=== PATIENT | male | born 1950 ===

== ENCOUNTER 2016-09-16 10:19 | Day surgery (SDC) | payer OTHER ==
[~2016-09-16 10:19] MED LIST: ceFAZolin 2 GM/DEXTROSE 100 ML IV ONE
[2016-09-16] MEDS ORDERED: CEFAZOLIN 2 GM/DEXTROSE/100 ML BAG IV ONE (10:45)
[2016-09-16] MEDS ORDERED: LIDOCAINE 1% 2 ML INJ ONE (10:45)
[2016-09-16 11:38] LABS: CALCIUM 9.2 mg/dL (8.5-10.4); CARBON DIOXIDE 20 mEq/l (22-31); GLOMERULAR FILTRATION RATE 7; GLUCOSE 86 mg/dL (70-100); POTASSIUM 4.7 mEq/L (3.5-5.2); SODIUM 145 mEq/L (134-144)
[2016-09-16 11:39] LABS: INR 1.07 (0.83-1.16); PROTIME(PATIENT) 13.8 SEC (12.0-15.0)
[2016-09-16 11:58] LABS: ANION GAP 14 mEq/L (8-16); CHLORIDE 111 mEq/L (97-110)
[2016-09-16 12:16] LABS: CREATININE 8.1 mg/dL (0.7-1.3)
[2016-09-16] MEDS ORDERED: LIDOCAINE 1% 30 ML SDV ONE (14:50)
[2016-09-16] MEDS ORDERED: SODIUM BICARBONATE 10 MEQ/10 ML SYR IVP ONE (14:50)
[2016-09-16] MEDS ORDERED: BUPIVACAINE 0.5% 30 ML SDV ONE (14:51)
[2016-09-16] MEDS ORDERED: MIDAZOLAM 2 MG/2 ML VIAL ONE (14:59)
[2016-09-16] MEDS ORDERED: ROCURONIUM 50 MG/5 ML VIAL ONE (15:10)
[2016-09-16] MEDS ORDERED: PROPOFOL 200 MG/20 ML VIAL ONE (15:10)
[2016-09-16] MEDS ORDERED: fentaNYL 100 MCG/2 ML INJ ONE (15:10)
--- NOTE | 2016-09-16 21:27 | GOP ---
[f rep st] OPERATIVE REPORT DATE OF OPERATION: 09/16/2016 SURGEON: Eboni Lloyd MD ANESTHESIA: Hector Rodriguez MD/general. PREOPERATIVE DIAGNOSIS: Chronic kidney disease, and umbilical hernia. POSTOPERATIVE DIAGNOSIS: Chronic kidney disease, and umbilical hernia. PROCEDURE PERFORMED: Laparoscopic peritoneal dialysis catheter placement and umbilical hernia repair. FINDINGS: Umbilical hernia, incarcerated omentum. SPECIMENS: None. 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 It is thought that he had developed chronic kidney disease due to amphotericin. He will be starting on dialysis soon. DESCRIPTION OF PROCEDURE: The patient was brought into the operating room, placed supine on the table. General anesthesia was administered. His abdomen was prepped and draped in the usual sterile fashion. I made an incision at his umbilicus. I dissected down through the subcutaneous tissue and I immediately encountered incarcerated omentum. I cleared this from both above and below the fascia. The defect was about 12mm. I then inserted a trocar at this site. I performed insufflation, inserted the camera. There were no other adhesions in his abdomen. I placed a peritoneal dialysis catheter. I placed a 2nd 5 mm trocar on the right lower quadrant to direct the catheter tip to the pelvis. The cuff was at the fascia. I then tunneled the catheter to an exit site in the left upper abdomen. The catheter was sutured into place with 3-0 nylon. I examined the catheter again; it was adequately in the pelvis. I closed the fascia at the umbilical site with 0 Surgilon and then placed a piece of 0 Vicryl in a pursestring fashion to suture the cuff to the fascia. Skin was closed with 3-0 Vicryl followed by 4-0 Monocryl. Dermabond applied. I then infused the catheter with 500 cc of saline; it went in nicely. I then placed it to gravity and it drained very easily. The appropriate connecting pieces were placed. Sterile dressings applied. He was awakened in the operating room, extubated, transferred to PACU in stable condition. /[id number]/MODL MTDD
== END 2016-09-16 17:40 | disposition home or self-care (01) ==
LOC: FSGY 10:19
PROVIDERS: ATTEND Surgery
DX: N18.9 Chronic kidney disease, unspecified (principal); K42.0 Umbilical hernia with obstruction, without gangrene; I25.10 Atherosclerotic heart disease of native coronary artery without angina pectoris; M10.9 Gout, unspecified; Z95.1 Presence of aortocoronary bypass graft; Z95.3 Presence of xenogenic heart valve
CPT/HCPCS: C1750; J0690; J2250; J2704; J3010

== ENCOUNTER → 2018-03-21 | Outpatient (CLI) | payer OTHER | LOC: FIMAGING 17:02 | PROVIDERS: ATTEND Surgery | DX: K40.20 Bilateral inguinal hernia, without obstruction or gangrene, not specified as recurrent (principal) ==

== ENCOUNTER 2018-03-28 09:26 | Day surgery (SDC) | payer OTHER ==
[2018-03-28] MEDS ORDERED: ceFAZolin 2 GM/DEXTROSE 100 ML IV ONE (09:44)
--- NOTE | 2018-03-28 10:02 | PDHPUP ---
History & Physical Update H&P update statement: This history and physical update is based on an assessment of the patient which was completed after admission or registration (within 24 hours), but prior to the surgery/procedure. H&P update: H&P reviewed & patient examined, no change in patient's condition since H&P completed
[2018-03-28] MEDS ORDERED: NS 1,000 ML IV ONE (10:15)
[2018-03-28] MEDS ORDERED: LIDOCAINE 1% 2 ML INJ ID PRN (10:15)
--- NOTE | 2018-03-28 10:17 | POSTANESTH ---
Post Anesthetic Evaluation Cardiovascular Status: Normal, Stable Respiratory Status: Normal, Stable Level of Consciousness/Mental Status: Can Participate in Eval, Moderately Sleepy Pain Control: Adequate, Prn Tx Ordered Nausea/Vomiting Control: Adequate, Prn Tx Ordered Complications Possibly Related to Anesthesia: None Noted
--- NOTE | 2018-03-28 10:19 | PDANEPAE ---
ANE History of Present Illness 68 yo male for L LIH repair and peritoneal dialysis cath placement. ANE Past Medical History - Cardiovascular History Hx Hypertension: Yes Hx Arrhythmias: No Hx Chest Pain: No Hx Coronary Artery / Peripheral Vascular Disease: Yes Hx CHF / Valvular Disease: Yes Hx Palpitations: No Cardiovascular History Comment: Hx AORTIC STENOSIS & REGURITATION AORTIC VALVE REPLACEMENT 2013. STENT 2007. RI 2007 - Pulmonary History Hx COPD: No Hx Asthma/Reactive Airway Disease: No Hx Recent Upper Respiratory Infection: No Hx Oxygen in Use at Home: No Hx Sleep Apnea: No Sleep Apnea Screening Result - Last Documented: Positive Pulmonary History Comment: ROXANNA triggers - Neurologic History Hx Cerebrovascular Accident: No Hx Seizures: No Hx Dementia: No Neurologic History Comment: OCCIPITAL LOBE 2009 ? TIA - mild peripherial vision impact. Hx migraines - Endocrine History Hx Diabetes: No Hypothyroid: No Hyperthyroid: No Obesity: no - Renal History Hx Renal Disorders: Yes Renal History Comment: Chronic renal failure - daily peritoneal dialysis - Liver History Hx Hepatic Disorders: No - Neurological & Psychiatric Hx Hx Neurological and Psychiatric Disorders: No - Cancer History Hx Cancer: Yes Cancer History Comment: squamous cell spots removed. 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 HIATAL HERNIA. mild irritable bowel, mucus in stools - Other Health History Other Health History: wears glasses. VALLEY FEVER 1978. CHRONIC ANKLE EDEMA. GOUT. chronically dry skin - Chronic Pain History Chronic Pain: No - Surgical History Prior Surgeries: Left nephrectomy, 09/2017. PD catheter placement & umbilical hernia repair, 08/2016. CABG X4 w/ AORTIC VALVE REPLACEMENT 10/2013. REMVL ABCESS RELATED TO VALLEY FEVER 1978 ANE Review of Systems Review of systems is: negative Review of Systems: - Exercise capacity METS (RN): 3 METS ANE Patient History - Allergies Allergies/Adverse Reactions: oxycodone Allergy (Verified 03/26/18 17:26) Vomiting - Home Medications Home Medications: ASPIRIN DAILY AT 6AM 09/13/16 [Last Taken 03/25/18] Allopurinol DAILY06 09/13/16 [Last Taken 03/28/18 07:00] CALCITRIOL DAILY06 09/13/16 [Last Taken 03/28/18 07:30] Carvedilol BID 09/13/16 [Last Taken 03/27/18 23:00] Ranitidine HCl DAILY AT 6PM 09/13/16 [Last Taken 03/27/18 23:00] Rosuvastatin Calcium DAILY06 09/13/16 [Last Taken 03/27/18 08:00] Flomax 03/26/18 [Last Taken 03/27/18 23:00] Fosrenol 03/26/18 [Last Taken 03/27/18 23:00] Ocuvite Adult 50 Plus Softgel 03/26/18 [Last Taken 03/26/18] Vitamin D3 03/26/18 [Last Taken 03/26/18] - NPO status NPO Status: no food or drink >8 hours - Anes Hx Anes Hx: no prior problems - Smoking Hx Smoking Status: Former smoker - Family Anes Hx Family Anes Hx: neg - N/A Family Hx Anesthesia Complications: none ANE Labs/Vital Signs - Labs Result Diagrams: 03/28/18 10:54 03/28/18 10:54 - Vital Signs Vital Signs: reviewed preoperatively; see RN documention for details Height: 173.99 cm Weight: 82.554 kg ANE Physical Exam - Airway Neck exam: FROM Mallampati Score: Class 2 Mouth exam: normal dental/mouth exam - Pulmonary Pulmonary: clear to auscultation - Cardiovascular Cardiovascular: regular rate and rhythym, systolic murmur - ASA Status ASA Status: III ANE Anesthesia Plan Anesthesia Plan: general endotracheal anesthesia
[2018-03-28] MEDS ORDERED: LIDOCAINE 1% 300 MG/30 ML SDV ONE (10:50)
[2018-03-28] MEDS ORDERED: BUPIVACAINE 0.5% 30 ML SDV ONE (10:50)
[2018-03-28] MEDS ORDERED: POVIDONE-IODINE 30 GM OINTTUBE TP ONE (10:52)
[2018-03-28] MEDS ORDERED: NA BICARBONATE 50 MEQ/50 ML VIAL ONE (10:53)
[2018-03-28 10:59] LABS: PLATELET COUNT 211 10^3/uL (150-400)
[2018-03-28] MEDS ORDERED: fentaNYL 100 MCG/2 ML INJ ONE ×2 (11:24→13:06)
[2018-03-28] MEDS ORDERED: PROPOFOL 200 MG/20 ML VIAL ONE (11:24)
[2018-03-28] MEDS ORDERED: CISATRACURIUM BESYLATE 20 MG/10 ML VIAL IV ONE (11:24)
[2018-03-28] MEDS ORDERED: LIDOCAINE 2% 2 ML INJ ONE (11:24)
[2018-03-28] MEDS ORDERED: DEXAMETHASONE 4 MG/ML VIAL ONE (11:24)
[2018-03-28] MEDS ORDERED: PHENYLEPHRINE HCL 100 MCG/ML SYR ONE (12:19)
[2018-03-28] MEDS ORDERED: VASOPRESSIN 20 UNIT/ML VIAL ONE (12:34)
[2018-03-28] MEDS ORDERED: ACETAMINOPHEN 500 MG TAB PO PRN (13:51)
[2018-03-28] MEDS ORDERED: ONDANSETRON 4 MG/2 ML VIAL IVP PRN (13:51)
[2018-03-28] MEDS ORDERED: NALOXONE HCL 0.4 MG/ML INJ IVP PRN (13:51)
[2018-03-28] MEDS ORDERED: PROMETHAZINE HCL 25 MG/ML INJ IVP PRN (13:51)
[2018-03-28] MEDS ORDERED: ALBUTEROL 3 ML DEYVIAL IH PRN (13:51)
[2018-03-28] MEDS ORDERED: fentaNYL 100 MCG/2 ML INJ IVP PRN (13:51)
[2018-03-28] MEDS ORDERED: BACITRACIN ZINC 14.2 GM OINTTUBE TP ONE (13:54)
[2018-03-28] MEDS ORDERED: NEOSTIGMINE METHYLSULFATE 5 MG/5 ML SYR ONE (13:59)
[2018-03-28] MEDS ORDERED: GLYCOPYRROLATE 0.2 MG/1 ML VIAL ONE ×2 (13:59)
--- NOTE | 2018-03-28 14:07 | POSTOPPROG ---
Post Op Note Date of Operation: 03/28/18 Surgeon: Eboni Lloyd Anesthesiologist: alexi Anesthesia: GET(General Endotracheal) Pre-op Diagnosis: B inguinal hernia, renal failure Post-op Diagnosis: Same Indication: 68 yo with renal failure, b ih Procedure: open BIH with exchange of pd cath Findings: LARGE Left direct, small right direct Inf/Abcess present in the surg proc area at time of surgery?: No EBL: Minimal Specimen(s): L sac
[2018-03-28] MEDS ORDERED: HYDROCODONE/APAP 5/325 TAB ONE ×2 (15:25→15:37)
[2018-03-28] MEDS: HYDROCODONE/APAP 5/325 TAB PO PRN ×2 (15:25→15:38)
[2018-03-28 15:56] VITALS: BP 119/84
--- NOTE | 2018-03-28 17:25 | GOP ---
DATE OF OPERATION: 03/28/2018 SURGEON: Eboni Lloyd MD OUTSIDE INSTALLATION MACHINIST: Mariza Torres PA-C. ANESTHESIA: General anesthesia. ANESTHESIOLOGIST: Bibi Guzman MD PREOPERATIVE DIAGNOSIS: Bilateral inguinal hernias and renal failure. POSTOPERATIVE DIAGNOSIS: Bilateral inguinal hernias and renal failure. PROCEDURE PERFORMED: Open bilateral inguinal hernia repair with mesh and laparoscopic peritoneal dialysis catheter exchange. FINDINGS: Bilateral direct inguinal hernia, large left inguinal hernia sac SPECIMENS: Left inguinal hernia sac. ESTIMATED BLOOD LOSS: 10 cc. INDICATIONS: This is a 68-year-old man on peritoneal dialysis. He 1st noticed that his cuff was extruding from the skin a bit. Also, when he was doing larger volumes paracentesis his testicle would fill up with fluid and become very enlarged. On physical exam I felt a cough impulse on the right side, and he also had an inguinal hernia there. Due to him getting peritoneal dialysis, open inguinal hernia repair was indicated. DESCRIPTION OF PROCEDURE: The patient was brought into the operating room, placed supine on the table and general anesthesia was administered. His bilateral groin and abdomen were prepped and draped in the usual sterile fashion. Ioban was placed. I infiltrated all sites with 0.5% Marcaine prior to making incisions. I started on the left groin. I made an incision in a natural skin crease. I dissected down through the skin and subcutaneous tissues. I encountered Marylou's and Camper's fascia which I divided. I continued my dissection until I found the aponeurosis of the external oblique. I selected a point in its fibers and elevated it and using Metzenbaum scissors, divided it. I created superior and inferior skin flaps. I was able to envelop the hernia sac, cord and cord structures within the [place]. The floor of the inguinal canal was obliterated. I found a very large hernia sac extending well into the testicles. I performed careful dissection to separate this from the delicate blood supply. This took a considerable amount of time. I then opened the hernia sac and reduced all the contents. I used PDS to suture ligate the hernia sac. I passed the sac off the field. I then placed a piece of ProGrip mesh and tacked this to the pubic tubercle, inguinal ligament and conjoined tendon. I created a slit to accommodate the cord in my 5th finger tip and crossed this. I closed the aponeurosis of the external oblique with 2-0 Vicryl , I closed Marylou's with 3-0 Vicryl, closed skin with 3-0 Vicryl followed by 4- 0 Monocryl. Mastisol, Steri-Strips, and a sterile dressing were applied. In a similar fashion, I repaired a hernia on the right side of his body. This time the direct hernia was not as big. It was easily reducible. Again, I placed a ProGrip mesh and tacked this to the pubic tubercle, conjoined tendon and inguinal ligament. I again closed the aponeurosis of the external oblique and the superficial layers in a similar fashion. Next, I made an incision by his umbilicus, I dissected down until I encountered the peritoneal dialysis catheter. I then circumferentially dissected the cuff from his fascia. I placed a pursestring suture with 0 PDS around the fascia. I then placed a new catheter into the abdomen and tunneled this out in a different location. I cut the old catheter and removed it. I placed a 5 mm trocar and the laparoscope and could see that the new catheter was directed toward his pelvis. I allowed saline to flow in through the catheter and this drained quite easily. I closed the pursestring suture at the fascia. I closed the skin with 3-0 Vicryl followed by 4-0 Monocryl. Mastisol, Steri-Strips, and sterile dressing applied. After all the sterile dressings were on, I finally removed the catheter using electrocautery from the superficial side. I placed antibiotic ointment in this area and then placed another dressing. He was awakened in the operating room, extubated, transferred to PACU in stable condition. /[id number]/MODL MTDD
--- NOTE | 2018-03-28 22:23 | CPEKG ---
Test Reason : OPEN Blood Pressure : / mmHG Vent. Rate : 087 BPM Atrial Rate : 087 BPM P-R Int : 166 ms QRS Dur : 094 ms QT Int : 386 ms P-R-T Axes : 071 052 093 degrees QTc Int : 465 ms Sinus rhythm Ventricular premature complex Unusual R wave progression pattern in precordial leads consider switch of V2 and V3 electrodes Delayed r wave progression Nonspecific T abnormalities, lateral leads Confirmed by Ruel Ramos ([id number] on 03/28/2018 10:22:58 PM Referred By: Confirmed By:Ruel Ramos
== END 2018-03-28 15:57 | disposition home or self-care (01) ==
LOC: FSGY 09:26
PROVIDERS: ATTEND Surgery
DX: K40.20 Bilateral inguinal hernia, without obstruction or gangrene, not specified as recurrent (principal); N19 Unspecified kidney failure
CPT/HCPCS: C1750; C1781; J0690; J1100; J2370; J2704; J2710; J3010